=== PATIENT | male | born 1990 | race African-American/Black ===

== ENCOUNTER 2024-03-10 11:21 | Emergency (ER) | payer OTHER, SELFPAY ==
[~2024-03-10] VITALS: Ht 177.8 cm; Wt 92.7 kg
[2024-03-10 11:35] VITALS: TEMP 97.1
[2024-03-10] MEDS: methylPREDNISolone 125MG 2ML VIAL IV ONE (11:41)
[2024-03-10] MEDS: FAMOTIDINE 20MG/2ML VIAL IVP ONE (11:41)
[2024-03-10] MEDS ORDERED: CETI-24 PO (14:52)
[2024-03-10] MEDS ORDERED: PRED20TA PO (14:53)
[2024-03-10] MEDS ORDERED: PEPC1TAB5 PO (14:53)
[2024-03-10 15:01] VITALS: BP 117/78; O2SAT 97
== END 2024-03-10 15:23 | disposition home or self-care (01) ==
LOC: M ED 11:21 → EDBD 11:21 → M ED 15:23
DX: T78.40XA Allergy, unspecified, initial encounter (principal)
CPT/HCPCS: 96374; 96375; 99284; J2919; S0028